=== PATIENT | female | born 1995 | race Caucasian/White ===

== ENCOUNTER 2017-05-17 15:48 | Inpatient (IN) | payer OTHER, MEDICAID ==
[~2017-05-17] VITALS: Ht 152.4 cm; Wt 90.7 kg
[2017-05-17] MEDS ORDERED: INSU100V3 SUBCUT (15:58)
[2017-05-17] MEDS ORDERED: SODIUM CHLORIDE 0.9% 1,000 ML IV ONE ×3 (16:57→18:45)
[2017-05-17] MEDS ORDERED: ONDANSETRON HCL 4MG/2ML VIAL IV ONE (17:00)
[2017-05-17 17:40] LABS: HEMATOCRIT. 32.8 % (36.0-48.0); HEMOGLOBIN. 9.6 g/dL (12.0-16.0); MEAN CORPUSCULAR HEMOGLOBIN 21.1 pg (28.0-32.0); MEAN CORPUSCULAR VOLUME 72.1 fL (81.0-99.0); MEAN PLATELET VOLUME 8.2 fl (7.4-10.4); PLATELET 362 x1000/uL (130-400); RED BLOOD CELL COUNT 4.55 mill/uL (4.2-5.4); RED CELL DISTRIBUTION WIDTH 18.3 % (11.6-14.6)
[2017-05-17 17:44] LABS: CHLORIDE 104 mEq/L (98-107)
[2017-05-17 17:50] LABS: CLARITY URINE CLOUDY (CLEAR); COLOR URINE YELLOW (YELLOW); GLUCOSE URINE 3+ (NEGATIVE); KETONES URINE 4+ (NEGATIVE); LEUKOCYTE ESTERASE URINE 2+ (NEGATIVE); NITRITE URINE NEGATIVE (NEGATIVE); OCCULT BLOOD URINE 1+ (NEGATIVE); PROTEIN URINE NEGATIVE (NEGATIVE); SPECIFIC GRAVITY URINE 1.024 (1.005-1.030); UROBILINOGEN URINE 0.2 E.U./dL (0.2-1.0)
[2017-05-17 17:53] LABS: CARBON DIOXIDE 5 mEq/L (21-32)
[2017-05-17 17:54] LABS: PLATELET ESTIMATE NORMAL
[2017-05-17] MEDS ORDERED: INSULIN REGULAR (DRIP) 100 UNITS in SODIUM CHLORIDE 0.9% 100 ML IV ONE (18:00)
[2017-05-17] MEDS ORDERED: INSULIN REGULAR IV NR (18:00)
[2017-05-17] MEDS ORDERED: SODIUM CHLORIDE 0.9% IV NR (18:00)
[2017-05-17 18:04] LABS: BETA HYDROXYBUTYRATE 8.3 mMol/L (0.0-0.3)
[2017-05-17 18:06] LABS: *AMPHETAMINES SCREEN URINE NEGATIVE (NEGATIVE); *BARBITURATES SCREEN URINE NEGATIVE (NEGATIVE); *BENZODIAZEPINES SCREEN URINE NEGATIVE (NEGATIVE); *COCAINE SCREEN URINE NEGATIVE (NEGATIVE); CANNABINOID URINE SCREEN NEGATIVE (NEGATIVE); METHADONE URINE SCREEN NEGATIVE (NEGATIVE); OPIATES URINE SCREEN NEGATIVE (NEGATIVE); PHENCYCLIDINE URINE SCREEN NEGATIVE (NEGATIVE)
[2017-05-17 18:08] LABS: B-HCG QUANTITATIVE 1533 mIU/mL (<3)
[2017-05-17 18:12] LABS: BG BASE EXCESS -26.7 mmol/L (-2.0-2.0); BG CARBOXYHEMOGLOBIN 0.3 % (0.5-1.5); BG DEOXYHEMOGLOBIN 1.7 % (0.0-5.0); BG HCO3 ACT 2.4 mmol/L (22.0-26.0); BG METHEMOGLOBIN 0.2 % (0.0-1.5); BG OXYGEN SATURATION 98.3 % (92.0-98.5); BG OXYHEMOGLOBIN 97.8 % (94.0-97.0); BG PH 7.006 (7.350-7.450); BG PO2 148.7 mmHg (75.0-100.0); BG SAMPLE SITE RIGHT RADIAL; BG TOTAL HEMOGLOBIN 11.3 g/dL (12.0-18.0); BG VENT MODE NASAL CANNULA
[2017-05-17] MEDS ORDERED: LORAZEPAM 2MG/ML CPJ IV ONE (18:30)
[2017-05-17] MEDS ORDERED: DEXT 5%/0.45% NACL 500ML 500 ML IV ONE (20:30)
[2017-05-17 21:18] LABS: CHLORIDE 113 mEq/L (98-107)
[2017-05-17 21:32] LABS: CARBON DIOXIDE 4 mEq/L (21-32)
[2017-05-18] VITALS (24 sets, daily range): BP systolic 101–141; BP diastolic 46–74
[2017-05-18] MEDS ORDERED: ONDANSETRON HCL 4MG/2ML VIAL IV PRN (02:00)
[2017-05-18] MEDS ORDERED: DEXTROSE 50% WATER 50ML SYRINGE IV PRN ×2 (02:00)
[2017-05-18] MEDS: BLOOD SUGAR DIAGNOSTIC STRIP TEST SCH ×19 (02:00→23:00)
[2017-05-18] MEDS: DEXT 5%/0.45% NACL 1000ML 1,000 ML IV SCH ×2 (02:25→16:05)
[2017-05-18] MEDS: INSULIN REGULAR (DRIP) 100 UNITS in SODIUM CHLORIDE 0.9% 100 ML IV SCH ×2 (02:53→10:26)
[2017-05-18 06:32] LABS: HEMATOCRIT. 28.6 % (36.0-48.0); HEMOGLOBIN. 8.9 g/dL (12.0-16.0); MEAN CORPUSCULAR HEMOGLOBIN 21.1 pg (28.0-32.0); MEAN CORPUSCULAR VOLUME 68.1 fL (81.0-99.0); PLATELET 306 x1000/uL (130-400); RED CELL DISTRIBUTION WIDTH 17.9 % (11.6-14.6)
[2017-05-18 07:03] LABS: CARBON DIOXIDE 12 mEq/L (21-32); CHLORIDE 113 mEq/L (98-107)
[2017-05-18 09:15] LABS: PLATELET ESTIMATE NORMAL
[2017-05-18 09:38] LABS: PHOSPHORUS 1.2 mg/dL (2.5-4.9)
[2017-05-18] MEDS ORDERED: POTASSIUM PHOS,M-BASIC-D-BASIC 30 MMOL in DEXT 5% WATER 500 ML IV SCH (13:00)
[2017-05-18 15:10] LABS: CHLORIDE 111 mEq/L (98-107)
[2017-05-18 15:12] LABS: CARBON DIOXIDE 16 mEq/L (21-32)
[2017-05-18] MEDS ORDERED: POTASSIUM CHLORIDE 20MEQ TABLET SR PO NR (17:30)
[2017-05-18] MEDS: ACETAMINOPHEN 325MG TABLET PO PRN (17:43)
[2017-05-18 20:17] LABS: CARBON DIOXIDE 13 mEq/L (21-32); CHLORIDE 112 mEq/L (98-107); PHOSPHORUS 1.3 mg/dL (2.5-4.9)
[2017-05-19] VITALS (21 sets, daily range): BP systolic 99–125; BP diastolic 40–78
[2017-05-19] MEDS: BLOOD SUGAR DIAGNOSTIC STRIP TEST SCH ×12 (00:30→12:00)
[2017-05-19] MEDS: DEXT 5%/0.45% NACL 1000ML 1,000 ML IV SCH ×2 (01:14→11:13)
[2017-05-19] MEDS: ACETAMINOPHEN 325MG TABLET PO PRN ×2 (01:16→18:20)
[2017-05-19 02:16] LABS: CHLORIDE 113 mEq/L (98-107)
[2017-05-19 02:24] LABS: CARBON DIOXIDE 15 mEq/L (21-32)
[2017-05-19] MEDS ORDERED: POTASSIUM PHOS,M-BASIC-D-BASIC 30 MMOL in SODIUM CHLORIDE 0.9% 500 ML IV NR (05:00)
[2017-05-19] MEDS ORDERED: POTASSIUM CHLORIDE 20MEQ TABLET SR PO NR (08:00)
[2017-05-19 08:16] LABS: CARBON DIOXIDE 17 mEq/L (21-32); CHLORIDE 113 mEq/L (98-107)
[2017-05-19] MEDS: INSULIN REGULAR (DRIP) 100 UNITS in SODIUM CHLORIDE 0.9% 100 ML IV SCH (08:58)
[2017-05-19 11:22] LABS: CHLORIDE 115 mEq/L (98-107)
[2017-05-19 11:27] LABS: CARBON DIOXIDE 17 mEq/L (21-32)
[2017-05-19] MEDS ORDERED: INSULIN DETEMIR UD 100 UNITS/ML SYR SUBCUT SCH (14:30)
[2017-05-19 15:01] LABS: BASOPHILS % 0.5 % (0.0-2.0); EOSINOPHILS % 0.5 % (0.0-5.0); HEMATOCRIT. 27.7 % (36.0-48.0); HEMOGLOBIN. 8.7 g/dL (12.0-16.0); LYMPHOCYTES % 19.5 % (20.0-50.0); MEAN CORPUSCULAR HEMOGLOBIN 21.2 pg (28.0-32.0); MEAN CORPUSCULAR VOLUME 67.6 fL (81.0-99.0); MEAN PLATELET VOLUME 7.8 fl (7.4-10.4); MONOCYTES % 11.7 % (2.0-8.0); NEUTROPHILS % 67.8 % (40.0-76.0); PLATELET 279 x1000/uL (130-400); RED BLOOD CELL COUNT 4.09 mill/uL (4.2-5.4); RED CELL DISTRIBUTION WIDTH 17.8 % (11.6-14.6)
[2017-05-19] MEDS ORDERED: DEXTROSE 50% WATER 50ML SYRINGE IV PRN (16:30)
[2017-05-19] MEDS ORDERED: BLOOD SUGAR DIAGNOSTIC STRIP TEST SCH (17:50)
[2017-05-19] MEDS ORDERED: INSULIN LISPRO (HIGH DOSE) 100 UNITS/ML SUBCUT SCH (18:20)
== END 2017-05-19 21:10 | disposition short-term general hospital (02) | DRG 781 ==
LOC: ER 15:48 → MICUSO 18:13 → EDBEDREQ 20:23 → ENRESERV 21:04 → MICUSO 22:46 → CVICU 05-18 00:49
PROVIDERS: ADMIT Hospitalist; ATTEND Hospitalist
DX: O24.011 Pre-existing type 1 diabetes mellitus, in pregnancy, first trimester (principal); O23.41 Unspecified infection of urinary tract in pregnancy, first trimester; Z79.4 Long term (current) use of insulin; D64.9 Anemia, unspecified; O99.341 Other mental disorders complicating pregnancy, first trimester; O99.011 Anemia complicating pregnancy, first trimester; Z3A.01 Less than 8 weeks gestation of pregnancy
CPT/HCPCS: 36415; 36600; 80048; 80053; 80305; 81001; 82010; 82375; 82805; 82962; 83690; 83735; 84100; 84702; 85025; 93005; 96361; 96365; 96375; 99291; J1815; J2060; J2405; J3490; J7030; J7040; J7042; J7050; J7060